=== PATIENT | female | born 1995 | race Two or more races ===

== ENCOUNTER 2021-05-27 22:58 | Emergency (ER) | payer SELFPAY ==
[~2021-05-27] VITALS: Ht 157.5 cm; Wt 51.0 kg
[2021-05-28] MEDS ORDERED: ACETAMINOPHEN 500 MG TABLET PO ONE (01:00)
[2021-05-28] MEDS ORDERED: IV NORMAL SALINE 1000ML BAG 1,000 ML IV ONE (01:00)
[2021-05-28] MEDS ORDERED: METOCLOPRAMIDE HCL 10 MG/2 ML VIAL. IVP ONE (01:00)
--- NOTE | 2021-05-28 01:02 | PHYS DOC ---
Past Medical History Past Medical History: No Pertinent History Past Surgical History: No Surgical History Smoking Status: Never Smoker Alcohol Use: None Drug Use: None General Adult EDM: Chief Complaint: HEADACHE HPI: HPI: 25-year-old female approximately 3 months presents to the emergency department complaining of headache for the last several days with gradual onset, located on the left side of her head that feels sharp radiating towards the back of her head. Not associate with any new trauma. She reports that she has chronic headaches from a head injury when she was 14 years old. She denies any complications or so far and reports that she had an ultrasound perf ormed that was within normal limits. She does have an SPANISH INSTRUCTOR provider that she sees. She admits to nausea and chills the patient denies vision changes, abdominal pain, change in urination, weakness, tremors, increase in lower extremity swelling. Review of Systems: Review of Systems: ROS is otherwise negative except for as mentioned in HPI Heart Score: C/O Chest Pain: No Physical Exam: PE: Constitutional: No acute distress, non-toxic appearance. HENT: Atraumatic, bilateral external ears normal, nose normal. Eyes: PERRLA, EOMI, conjunctiva normal, no discharge. Neck: Normal range of motion, supple, no stridor. Cardiovascular: Heart rate regular rhythm. 2+ radial pulses Lungs & Thorax: No respiratory distress, symmetrical expansion. Bilateral breath sounds clear to auscultation Abdomen: Soft, no tenderness Skin: Warm, dry. Extremities: No tenderness, no cyanosis, ROM intact, no edema. Neurologic: Alert and oriented X 3, no focal deficits noted. Non ataxic gait. GCS 15. No pronator drift, motor strength is 5/5 in upper extremity lower extremity bilaterally. Cranial nerves II through XII are intact. Psychologic: Affect normal, judgment normal, mood normal. Current Patient Data: Labs: Laboratory Tests Test 05/28/21 01:15 05/28/21 02:24 SARS-CoV-2 Antigen (Rapid) Negative (NEGATIVE) Urine Collection Type Unknown Urine Color Yellow Urine Clarity Clear Urine pH 6.5 (<5.0-8.0) Urine Specific [place] <=1.005 (1.000-1.030) Urine Protein Negative mg/dL (NEG-TRACE) Urine Glucose (UA) Negative mg/dL (NEG) Urine Ketones (Stick) 15 mg/dL (NEG) Urine Blood Negative (NEG) Urine Nitrite Negative (NEG) Urine Bilirubin Negative (NEG) Urine Urobilinogen Dipstick 0.2 mg/dL (0.2 mg/dL) Urine Leukocyte Esterase Negative (NEG) Urine RBC 0 /HPF (0-2) Urine WBC 0 /HPF (0-4) Urine Squamous Epithelial Cells Few /LPF Urine Bacteria 0 /HPF (0-FEW) Vital Signs: Vital Signs Date Time Temp Pulse Resp B/P (MAP) Pulse Ox O2 Delivery O2 Flow Rate FiO2 05/28/21 01:05 98.8 113/65 (81) 100 98.8 Course & Med Decision Making: Course & Med Decision Making Patient felt much better after interventions, her urine is unremarkable, her vitals are stable. She will be discharged in stable condition. My Orders - SOLO GEORGES DO Procedure Category Date Status Time Ua, Cult If Indicated LAB 05/28/21 Complete 00:58 Acetaminophen PHA 05/28/21 Complete (Tylenol) 01:00 Metoclopramide Vial PHA 05/28/21 Complete (Reglan Vial) 01:00 Iv Normal Saline PHA 05/28/21 Complete 1000ml Bag (Iv Sodium 01:00 Sars Cov2 ([place]) LAB 05/28/21 In Process 01:00 Sars Antigen Gabriela Rapid LAB 05/28/21 Complete 01:00 Departure Departure Impression: Primary Impression: Headache Disposition: 01 HOME / SELF CARE / HOMELESS Condition: IMPROVED Referrals: NO PCP (PCP) Patient Instructions: General Headache Without Cause Additional Instructions: You were seen in the Emergency Department for headache. Please drink plenty of fluids -- at least 6-8 glasses of water per day. Dehydration can often precipitate headaches. Avoid alcohol and sugary or caffeinated beverages. Return to the Emergency Department, day or night, if you develop recurrent or worsening headache, vision changes, difficulty eating or drinking due to nausea or vomiting, weakness or numbness in the limbs, difficulty walking or fever. SOLO GEORGES DO May 28, 2021 01:02
[2021-05-28 02:28] LABS: BILIRUBIN,URINE NEGATIVE (NEG); CLARITY,URINE CLEAR; COLOR,URINE YELLOW; NITRITE,URINE NEGATIVE (NEG); PH,URINE 6.5 (<5.0-8.0); PROTEIN,URINE NEGATIVE (NEG-TRACE); UROBILINOGEN,URINE 0.2 mg/dL (0.2 mg/dL)
[2021-05-28 02:36] VITALS: BP 105/56
[2021-05-28 02:37] LABS: BACTERIA,URINE 0 /HPF (0-FEW); RBC,URINE 0 /HPF (0-2); WBC,URINE 0 /HPF (0-4)
--- NOTE | 2021-05-30 18:39 | NUR ---
IP: Attempts x 2 to contact pt concerning covid results. No answer and no voicemail set up.
== END 2021-05-28 03:00 | disposition home or self-care (01) ==
LOC: ER 22:58
DX: O26.891 Other specified pregnancy related conditions, first trimester (principal); Z20.822 Contact with and (suspected) exposure to COVID-19; R51.9 Headache, unspecified; G89.29 Other chronic pain; Z3A.12 12 weeks gestation of pregnancy
CPT/HCPCS: 81001; 87426; 96361; 96374; 99285; J2765; J7030; U0003; U0005; 99283-25

== ENCOUNTER 2021-10-03 23:02 | Observation (INO) | payer SELFPAY ==
[~2021-10-03] VITALS: Ht 147.3 cm; Wt 59.7 kg
[2021-10-03] MEDS ORDERED: IV RINGERS,LACTATED 1000ML 1,000 ML IV SCH (23:30)
[2021-10-04 00:06] LABS: BARBITURATES NEG (NEG); BENZODIAZEPINES NEG (NEG); BILIRUBIN,URINE NEGATIVE (NEG); CANNABINOIDS NEG (NEG); CLARITY,URINE CLOUDY; COCAINE NEG (NEG); COLOR,URINE YELLOW; METHADONE NEG (NEG); NITRITE,URINE NEGATIVE (NEG); OPIATES NEG (NEG); PH,URINE 7.5 (<5.0-8.0); PHENCYCLIDINE NEG (NEG); PROTEIN,URINE 30 mg/dL (NEG-TRACE)
[2021-10-04 00:12] LABS: RBC,URINE OCC /HPF (0-2)
[2021-10-04 00:13] LABS: BACTERIA,URINE MANY /HPF (0-FEW)
[2021-10-04 00:16] LABS: AMPHETAMINE/METHAMPHETAMINE NEG (NEG)
== END 2021-10-04 02:30 | disposition home or self-care (01) ==
LOC: EDBD 23:02 → 3 SO LND 23:02
PROVIDERS: ADMIT Obstetrics & Gynecology; ATTEND Obstetrics & Gynecology
DX: O26.893 Other specified pregnancy related conditions, third trimester (principal); R10.9 Unspecified abdominal pain; Z3A.34 34 weeks gestation of pregnancy; Z79.899 Other long term (current) drug therapy
CPT/HCPCS: 59025; 80307; 81001; 87086; 96360; G0378; G0379; J7120

== ENCOUNTER 2021-10-31 18:27 | Observation (INO) | payer SELFPAY ==
[2021-10-31] MEDS ORDERED: IV RINGERS,LACTATED 1000ML 1,000 ML IV SCH (18:45)
[2021-10-31] MEDS ORDERED: IV RINGERS,LACTATED 1000ML 1,000 ML IV PRN (18:45)
[2021-10-31 19:24] LABS: BILIRUBIN,URINE NEGATIVE (NEG); CLARITY,URINE CLOUDY; COLOR,URINE STRAW; NITRITE,URINE NEGATIVE (NEG); PROTEIN,URINE NEGATIVE (NEG-TRACE); UROBILINOGEN,URINE 0.2 mg/dL (0.2 mg/dL)
[2021-10-31 19:26] LABS: BACTERIA,URINE MANY /HPF (0-FEW)
[2021-10-31 19:27] LABS: RBC,URINE 0 /HPF (0-2); WBC,URINE OCC /HPF (0-4)
[2021-10-31] MEDS ORDERED: TERBUTALINE 1 MG/ML VIAL. ONE ×2 (20:25→21:00)
--- NOTE | 2021-10-31 20:50 | PDOC1 ---
DOCTOR OF OSTEOPATHY H&P Date of Admission: Date of Admission: Oct 31, 2021 at 18:27 History of Present Illness: EDC: 11/15/21 LMP: 02/08/21 (per [facility] records), 01/31/21 (per pt) 25y @ 37.6 by L=20 who presented to L&D with stomach pain, vaginal pressure, ctxs. She felt these pains for the last 3 days. She [facility] at [facility]. She has not been referred to for a chart review yet. She has had a few level II u/s with for a borderline EFW. The LMP that they have used to calculate her EDC is different than the LMP that the pt gives today. It is unclear why the difference exists. The pt is sure about her LMP. She states that she was veronica by the Pricing Strategist a last Wednesday that she was 38 wks. Her appt got cancelled this wk due to the weather. She had a C/S with her first . It is unclear why she had the C/S. She tells me that she was found to be oligio at 40wks, but told the nurse prior to our discussion that it was for NRFHT. The cone former that I used seemed to have some limitations. The incision on her skin is a vertical midline. Base on her history it is likely that the incision on her lower transverse, but we cant not be complete sure. She is interested in a TOLAC, but is fine if she needs a C/S. Medications: Meds: Current Medications Medications (Trade) Dose Ordered Sig/Tg Route PRN Reason Start Time Stop Time Status Last Admin Dose Admin Ringer's Solution 1,000 ml @ 125 mls/hr Q8H IV 10/31/21 18:45 10/31/21 20:34 Ringer's Solution 1,000 ml @ 125 mls/hr Q8H PRN IV PER PROTOCOL 10/31/21 18:45 10/31/21 19:40 Allergies: Coded Allergies: No Known Drug Allergies (Unverified , 05/28/21) Physical Exam: PE: GENERAL: No apparent distress. Alert and oriented. HEENT: Head normocephalic, atraumatic. NECK: Supple LUNGS: Clear to auscultation. HEART: RRR, S1, S2 present, pulses intact ABDOMEN: Soft, positive bowel sounds. EXTREMITIES: No cyanosis or edema. NEUROLOGIC: Normal speech, normal tone PSYCHIATRIC: Normal affect, normal mood. SKIN: No ulceration. Labs: Laboratory Tests Test 10/31/21 18:35 Urine Collection Type Unknown Urine Color Straw Urine Clarity Cloudy Urine pH 6.0 (<5.0-8.0) Urine Specific [place] <=1.005 (1.000-1.030) Urine Protein Negative mg/dL (NEG-TRACE) Urine Glucose (UA) Negative mg/dL (NEG) Urine Ketones (Stick) Negative mg/dL (NEG) Urine Blood Negative (NEG) Urine Nitrite Negative (NEG) Urine Bilirubin Negative (NEG) Urine Urobilinogen Dipstick 0.2 mg/dL (0.2 mg/dL) Urine Leukocyte Esterase Negative (NEG) Urine RBC 0 /HPF (0-2) Urine WBC Occ /HPF (0-4) Urine Squamous Epithelial Cells Few /LPF Urine Bacteria Many /HPF (0-FEW) Assessment & Plan: A/P 25y @ 37.6 by L=20 1.) PTC no significant cervical change. Ctxs have space out after a Liter of fluids. Will give one dose of Terb 2.) Prev C/S x 1 desires TOLAC, unk scar 3.) Borderline EFW 11% at 09/29/21 4.) Pt desires to switch to [facility] medical care. Appt given today 11/06/21 at 1:20 pm 5.) Fetus cat I FHT 6.) GBS unk will obtain records from [facility] Oleary MD Oct 31, 2021 20:50
== END 2021-10-31 22:29 | disposition home or self-care (01) ==
LOC: 3 SO LND 18:27
PROVIDERS: ADMIT Obstetrics & Gynecology; ATTEND Obstetrics & Gynecology
DX: O62.9 Abnormality of forces of labor, unspecified (principal); O26.893 Other specified pregnancy related conditions, third trimester; R10.2 Pelvic and perineal pain; N89.8 Other specified noninflammatory disorders of vagina; O34.219 Maternal care for unspecified type scar from previous cesarean delivery; Z3A.37 37 weeks gestation of pregnancy
CPT/HCPCS: 59025; 81001; 87086; 96360; 96361; G0378; G0379; J3105; J7120

== ENCOUNTER 2021-11-10 05:34 | Inpatient (IN) | payer SELFPAY ==
[~2021-11-10] VITALS: Ht 147.3 cm; Wt 63.6 kg
[2021-11-10] MEDS ORDERED: IV RINGERS,LACTATED 1000ML 1,000 ML IV SCH (05:45)
[2021-11-10] MEDS ORDERED: CITRIC ACID/SODIUM CITRATE 30 ML SOLUTION. PO ONE (05:45)
[2021-11-10 05:50] VITALS: BP 121/72
[2021-11-10] MEDS ORDERED: ceFAZolin 2GM PREMIX 2 GM/50 ML BAG IV ONE (06:00)
[2021-11-10 06:31] LABS: BILIRUBIN,URINE NEGATIVE (NEG); CLARITY,URINE CLEAR; COLOR,URINE YELLOW
[2021-11-10 06:32] LABS: NITRITE,URINE NEGATIVE (NEG); PROTEIN,URINE NEGATIVE (NEG-TRACE); UROBILINOGEN,URINE 0.2 mg/dL (0.2 mg/dL)
[2021-11-10 06:39] LABS: RBC,URINE 0 /HPF (0-2); WBC,URINE 0 /HPF (0-4)
[2021-11-10 06:40] LABS: BACTERIA,URINE MODERATE /HPF (0-FEW)
[2021-11-10 06:56] LABS: HEMOGLOBIN 11.1 g/dL (12.0-15.5); RED BLOOD COUNT 4.04 x10^6/uL (3.50-5.40); RED CELL DISTRIBUTION WIDTH 16.4 % (11.5-14.5); WHITE BLOOD COUNT 7.2 x10^3/uL (4.0-11.0)
[2021-11-10] MEDS: IV RINGERS,LACTATED 1000ML 1,000 ML IV SCH ×3 (07:19→18:37)
[2021-11-10] MEDS ORDERED: MORPHINE PF 10 MG/10 ML AMPUL. ONE (07:34)
[2021-11-10] MEDS ORDERED: fentaNYL PF VIAL 100 MCG/2 ML VIAL ONE (07:35)
--- NOTE | 2021-11-10 08:14 | PDOC1 ---
COACH MECHANIC H&P Date of Admission: Date of Admission: Nov 10, 2021 at 05:34 History of Present Illness: EDC: 11/15/21 LMP: 02/08/21 (per [facility] records), 01/31/21 (per pt) 25y @ 39.2 by L=20 who presented to L&D for scheduled C/S. The pt began her care with [facility] but desired to deliver at [place]. She has been to for growth u/s but never attended a chart review. The used a different LMP than she gave on L and D. We are using the EDC established by . She had a C/S with her first . It is unclear why she had the C/S. On L and D she stated that the C/s was for oligio (baby swallowing fluid) at 40wks. The pt was asked about NRFHT, but does not think it was for that reason. She states that often the providers don t communicate why they are doing things in [place]. The pt underwent the C/S under spinal anesthesia. Explained that based on most of what she has told me it is likely that her C/S was lower transverse. Since I could not be 100% it would be consider an unknown scar and she would be a little more risk. The pt originally was considering a TOLAC, but today states that she would prefer a repeat C/S. The pt has been having some ctx s. They are not as intense as he visit earlier in the wk. One of the reason why the pt has decided on a repeat C/S, is that she tired of coming to L and D and having her ctx s stopped. The pt thinks that a GBS was obtained at [facility]. PMH: Denies PSH: C/S x 1 Meds: PNV All: NKDA OBHx: TC/S SH: no tob, no EtOH FH: Cardiac disease. Medications: Meds: Current Medications Medications (Trade) Dose Ordered Sig/Tg Route PRN Reason Start Time Stop Time Status Last Admin Dose Admin Ringer's Solution 1,000 ml @ 1,000 mls/hr Q1H IV 11/10/21 05:45 11/10/21 06:44 DC 11/10/21 06:13 Ringer's Solution 1,000 ml @ 125 mls/hr Q8H IV 11/10/21 05:45 11/10/21 07:19 Citric Acid/ Sodium Citrate (Bicitra) 30 ml 1X ONCE PO 11/10/21 05:45 11/10/21 05:49 DC 11/10/21 06:49 Allergies: Coded Allergies: No Known Drug Allergies (Unverified , 05/28/21) Physical Exam: Vital Signs: Vital Signs Date Time Temp Pulse Resp B/P (MAP) Pulse Ox O2 Delivery O2 Flow Rate FiO2 11/10/21 05:50 98.1 85 18 121/72 (88) Room Air 98.1 PE: GENERAL: No apparent distress. Alert and oriented. HEENT: Head normocephalic, atraumatic. NECK: Supple LUNGS: Clear to auscultation. HEART: RRR, S1, S2 present, pulses intact ABDOMEN: Soft, positive bowel sounds. EXTREMITIES: No cyanosis or edema. NEUROLOGIC: Normal speech, normal tone PSYCHIATRIC: Normal affect, normal mood. SKIN: No ulceration. FHT: 150s +acels/no decels/mLTV [place]: 8-10 min Labs: Laboratory Tests Test 11/10/21 05:55 11/10/21 06:11 Urine Collection Type Unknown Urine Color Yellow Urine Clarity Clear Urine pH 6.0 (<5.0-8.0) Urine Specific [place] 1.025 (1.000-1.030) Urine Protein Negative mg/dL (NEG-TRACE) Urine Glucose (UA) Negative mg/dL (NEG) Urine Ketones (Stick) Negative mg/dL (NEG) Urine Blood Negative (NEG) Urine Nitrite Negative (NEG) Urine Bilirubin Negative (NEG) Urine Urobilinogen Dipstick 0.2 mg/dL (0.2 mg/dL) Urine Leukocyte Esterase Negative (NEG) Urine RBC 0 /HPF (0-2) Urine WBC 0 /HPF (0-4) Urine Squamous Epithelial Cells Few /LPF Urine Bacteria Moderate /HPF (0-FEW) Urine Mucus Slight /LPF White Blood Count 7.2 x10^3/uL (4.0-11.0) Red Blood Count 4.04 x10^6/uL (3.50-5.40) Hemoglobin 11.1 g/dL (12.0-15.5) L Hematocrit 34.0 % (36.0-47.0) L Mean Corpuscular Volume 84 fL (79-100) Mean Corpuscular Hemoglobin 28 pg (25-35) Mean Corpuscular Hemoglobin Concent 33 g/dL (31-37) Red Cell Distribution Width 16.4 % (11.5-14.5) H Platelet Count 215 x10^3/uL (140-400) Laboratory Tests 11/10/21 06:11 Laboratory Tests 11/10/21 06:11 Assessment & Plan: A/P 25y @ 39.2 by L=20 1.) [facility] records requested 2.) Prev C/S x 1 - desires repeat (operations scheduler at [facility] has gone home for the day) 3.) Borderline EFW 11% at 09/29/21 4.) Fetus cat I FHT 5.) GBS unk - will obtain records from [facility] Oleary MD Nov 10, 2021 08:14
[2021-11-10] MEDS ORDERED: ePHEDrine PF IN SALINE 50 MG/10 ML SYRINGE. IV ONE (10:54)
[2021-11-10] MEDS ORDERED: OXYTOCIN 10 UNIT/ML VIAL. ONE (10:54)
[2021-11-10] MEDS ORDERED: FAMOTIDINE 20 MG/2 ML VIAL ONE (10:54)
[2021-11-10] MEDS ORDERED: ONDANSETRON PF 4 MG/2 ML VIAL. ONE (10:54)
[2021-11-10] MEDS ORDERED: METOCLOPRAMIDE HCL 10 MG/2 ML VIAL. ONE (10:54)
[2021-11-10] MEDS ORDERED: ACETAMINOPHEN 325 MG TABLET. PO PRN (11:00)
[2021-11-10] MEDS ORDERED: BENZOCAINE 20% TOPICAL AEROSOL SPRAY 57GM CAN. TP PRN (11:00)
[2021-11-10] MEDS ORDERED: OXYTOCIN 30 UNIT/500 ML PREMIX 500 ML IV PRN (11:00)
[2021-11-10] MEDS ORDERED: 0.9 % SODIUM CHLORIDE 10 ML DISP.SYRIN. IV PRN (11:00)
[2021-11-10] MEDS ORDERED: MMR per PROTOCOL. MC PRN (11:00)
[2021-11-10] MEDS ORDERED: TDaP (BOOSTRIX) per PROTOCOL. MC PRN (11:00)
[2021-11-10] MEDS ORDERED: oxyCODONE/APAP 5/325 1 TAB TABLET PO PRN (11:00)
[2021-11-10] MEDS: diphenhydrAMINE ORAL ELIXIR 12.5 MG/5 ML ML PO PRN ×2 (11:09→23:10)
[2021-11-10] MEDS ORDERED: ONDANSETRON PF 4 MG/2 ML VIAL. IVP PRN (12:45)
--- NOTE | 2021-11-10 12:54 | PDOC4 ---
OPERATIVE NOTE: PreOp Dx: 1.) IUP @ 39.2 by L=20, 2.) BEULAH from [facility], 3.) Prev C/S x 1, 4.) Borderline EFW 11% at 09/29/21, 5.) GBS unk (obtained at [facility]) PostOp Dx: same, 9.) Thick mec Procedure: RLTCS Surgeon: Poppy Bernstein Anesthesia: Spinal EBL: 800 cc Fluids: 1000 cc UOP: 250 cc Complications: None Findings: Viable male infant delivered at 0848. Wt 6 lb 15.5 oz. APGARS 8/9. Nml tubes and ovaries. Path: Cord blood NHUNG BERNSTEIN MD Nov 10, 2021 12:54
[2021-11-10 13:25] VITALS: BP 98/52
--- NOTE | 2021-11-10 13:25 | NUR ---
Patient transfered from [facility] to room 341 after recovery via bed. Patient accompanied by SO and baby. Patient continued to C/o nausea at that time. Patient requesting fluids, Rn explained tp patient to remain NPO till nausea subsides. Patient voiced understanding. IV LR continues to infuse @ 125ml Hr. Patient comfortable and denies further needs at that time.
--- NOTE | 2021-11-10 13:30 | OP ---
DATE OF SURGERY: 11/10/2021 PREOPERATIVE DIAGNOSES: 1. Intrauterine at 39 weeks and 2 days by LMP equal to 20-week ultrasound. 2. Transfer of care from [facility]. 3. Previous section x 1, desires repeat. 4. Borderline estimated weight of 11% on 09/29. 5. GBS unknown, was obtained at [facility]. POSTOPERATIVE DIAGNOSES: 1. Intrauterine at 39 weeks and 2 days by LMP equal to 20-week ultrasound. 2. Transfer of care from [facility]. 3. Previous section x 1, desires repeat. 4. Borderline estimated weight of 11% on 09/29. 5. GBS unknown, was obtained at [facility]. PROCEDURE: Repeat low transverse . SURGEON: Kalyan Bryant MD ANESTHESIA: Spinal. ESTIMATED BLOOD LOSS: 800 mL. FLUIDS: 1000 mL. URINE OUTPUT: 250 mL. COMPLICATIONS: None. FINDINGS: Viable male delivered at 0848, weighing 6 pounds 15.5 ounces with Apgars of 8 and 9. Normal tubes and ovaries noted. PATHOLOGY: Cord blood. DESCRIPTION OF PROCEDURE: The patient was taken to the operating room, where spinal anesthesia was placed without difficulty. The patient was prepped and draped in normal sterile fashion with a left lateral tilt. Her previous vertical midline incision had formed a keloid. This was cut out in an elliptical fashion. Once the scar had been cut out, incision was carried down to the underlying layer of fascia, which was opened vertically along the midline. Once the peritoneum had been identified, hemostat was used to tent up and grasped and entered sharply with Metzenbaum scissors. Digital examination of the peritoneum revealed no appreciable adhesions. At that point, the peritoneal incision was extended superiorly and inferiorly with good visualization of the bladder with traction and countertraction. At that point, Garfield ring was then placed to better visualize the lower uterine segment. A bladder flap was then created with Metzenbaum scissors. Once this had been accomplished, the lower uterine segment was incised in transverse fashion with the scalpel. The 's head was then flexed and brought to the hysterotomy. The rest of was delivered atraumatically. The nose and mouth were bulb suctioned. The cord was double clamped and cut. Infant was handed over to the waiting workers compensation consultant. Placenta was then removed manually. Uterus was then cleared of all clots and debris. At that point, the uterine incision was repaired with #1 chromic in a running locked fashion. A second layer of the same suture was used to imbricate. At that point, a 2-0 Vicryl was used to close the peritoneum. The fascia and muscle were then closed with a modified Torresead-Small method with 0 Vicryl essentially where the first pass included the fascia, muscle and peritoneum with the next pass only including the fascia. This was done with every other pass until the fascia was closed. At that point, the subcutaneous space was reapproximated with 2-0 Vicryl with 4 interrupted stitches. The skin was then closed with 3-0 Monocryl in a subcuticular manner. The patient tolerated the procedure well. Sponges, laps and needles were correct x3. Two grams of Ancef were given prior to the procedure. The patient was then taken to recovery room in stable condition. EMILIANO DR: Marcie TID: [phone]
[2021-11-10 14:00] VITALS: BP 113/54
[2021-11-10 15:00] VITALS: BP 107/62
[2021-11-10] MEDS: FERROUS SULFATE 325 MG TABLET. PO SCH (17:00)
[2021-11-10 19:15] VITALS: BP 110/64
[2021-11-10] MEDS: KETOROLAC 30 MG/ML VIAL. IVP PRN (19:18)
[2021-11-10 23:12] VITALS: BP 111/67
[2021-11-11 01:09] VITALS: BP 103/49
[2021-11-11] MEDS: KETOROLAC 30 MG/ML VIAL. IVP PRN (01:24)
[2021-11-11] MEDS: IV RINGERS,LACTATED 1000ML 1,000 ML IV SCH (02:31)
[2021-11-11 06:20] VITALS: BP 97/50
[2021-11-11 06:32] LABS: HEMATOCRIT 25.7 % (36.0-47.0); HEMOGLOBIN 8.7 g/dL (12.0-15.5); RED BLOOD COUNT 3.09 x10^6/uL (3.50-5.40); RED CELL DISTRIBUTION WIDTH 16.2 % (11.5-14.5); WHITE BLOOD COUNT 8.1 x10^3/uL (4.0-11.0)
[2021-11-11] MEDS: MULTIVITAMIN with MINERAL TABLET. PO SCH (08:32)
[2021-11-11] MEDS: FERROUS SULFATE 325 MG TABLET. PO SCH ×2 (08:32→17:40)
[2021-11-11] MEDS: IBUPROFEN 400 MG TABLET. PO PRN ×2 (08:33→19:32)
[2021-11-11] MEDS: PRENATAL MULTIVITAMIN TABLET. PO SCH (09:00)
[2021-11-11 10:20] VITALS: BP 102/56
--- NOTE | 2021-11-11 12:19 | PDOC ---
SAUSAGE COOKER PROGRESS NOTE Date of Service: DATE: 11/11/21 TIME: 12:16 Subjective: Doing well. Tolerates regular diet. Up to restroom. Pain well managed with PO meds. Otherwise denies complaints. Objective: Objective: FF @ U, scant lochia. 2cm x 4cm area of dried bloody drainage to abdominal dressing, unchanged in amount since last noc. No active bleeding. Plan to remove bandage in shower today. Tr edema to bilateral LE. Vital Signs: Vital Signs Date Time Temp Pulse Resp B/P (MAP) Pulse Ox O2 Delivery O2 Flow Rate FiO2 11/10/21 13:25 98.6 68 18 98/52 (67) 96 Room Air 98.6 Vital Signs Date Time Temp Pulse Resp B/P (MAP) Pulse Ox O2 Delivery O2 Flow Rate FiO2 11/11/21 10:20 100.7 87 18 102/56 (71) 97 100.7 11/11/21 09:00 Room Air Labs: Laboratory Tests Test 11/11/21 06:00 White Blood Count 8.1 x10^3/uL (4.0-11.0) Red Blood Count 3.09 x10^6/uL (3.50-5.40) L Hemoglobin 8.7 g/dL (12.0-15.5) L Hematocrit 25.7 % (36.0-47.0) L Mean Corpuscular Volume 83 fL (79-100) Mean Corpuscular Hemoglobin 28 pg (25-35) Mean Corpuscular Hemoglobin Concent 34 g/dL (31-37) Red Cell Distribution Width 16.2 % (11.5-14.5) H Platelet Count 170 x10^3/uL (140-400) Laboratory Tests 11/11/21 06:00 Laboratory Tests 11/11/21 06:00 Physical Exam: GENERAL: No apparent distress. Alert and oriented. HEENT: Head normocephalic, atraumatic. NECK: Supple LUNGS: Clear to auscultation. HEART: RRR, S1, S2 present, pulses intact ABDOMEN: Soft, positive bowel sounds. EXTREMITIES: No cyanosis or edema. NEUROLOGIC: Normal speech, normal tone PSYCHIATRIC: Normal affect, normal mood. SKIN: No ulceration. Assessment & Plan: POD # 1, increase activity as tolerated. Routine PP course. BIRD ROSARIO CNM Nov 11, 2021 12:19
[2021-11-11] MEDS: DOCUSATE SODIUM 100 MG CAPSULE. PO PRN (12:28)
[2021-11-11 14:26] VITALS: BP 107/65
[2021-11-11] MEDS: oxyCODONE/APAP 5/325 1 TAB TABLET PO PRN (17:47)
[2021-11-11 18:30] VITALS: BP_SYST 119
[2021-11-11 21:20] VITALS: BP 108/43
[2021-11-12] MEDS: oxyCODONE/APAP 5/325 1 TAB TABLET PO PRN ×3 (03:58→13:15)
[2021-11-12] MEDS: IBUPROFEN 400 MG TABLET. PO PRN ×2 (03:59→13:15)
[2021-11-12 04:04] VITALS: BP 104/68
[2021-11-12 08:33] VITALS: BP 110/65
[2021-11-12] MEDS: DOCUSATE SODIUM 100 MG CAPSULE. PO PRN (08:34)
[2021-11-12] MEDS: PRENATAL MULTIVITAMIN TABLET. PO SCH (08:34)
[2021-11-12] MEDS: FERROUS SULFATE 325 MG TABLET. PO SCH (08:34)
[2021-11-12 08:45] VITALS: BP 110/65
[2021-11-12] MEDS ORDERED: DOCU-109 PO (08:59)
[2021-11-12] MEDS ORDERED: FERR325T14 PO (08:59)
[2021-11-12] MEDS ORDERED: IBUP-1060 PO (08:59)
[2021-11-12] MEDS ORDERED: OXYC1TAB15 PO (09:00)
[2021-11-12] MEDS: MULTIVITAMIN with MINERAL TABLET. PO SCH (09:00)
--- NOTE | 2021-11-12 10:12 | PDOC ---
SLP TEACHER PROGRESS NOTE Date of Service: DATE: 11/12/21 TIME: 10:12 Subjective: Pt with good pain control. Marivel PO. Voiding. Minimal lochia. Objective: Vital Signs: Vital Signs Date Time Temp Pulse Resp B/P (MAP) Pulse Ox O2 Delivery O2 Flow Rate FiO2 11/11/21 09:00 Room Air 11/11/21 10:20 100.7 87 18 102/56 (71) 97 100.7 Vital Signs Date Time Temp Pulse Resp B/P (MAP) Pulse Ox O2 Delivery O2 Flow Rate FiO2 11/12/21 08:45 Room Air 11/12/21 08:45 97.7 69 18 110/65 (80) 98 97.7 Physical Exam: GENERAL: No apparent distress. Alert and oriented. HEENT: Head normocephalic, atraumatic. NECK: Supple LUNGS: Clear to auscultation. HEART: RRR, S1, S2 present, pulses intact ABDOMEN: Soft, positive bowel sounds. EXTREMITIES: No cyanosis or edema. NEUROLOGIC: Normal speech, normal tone PSYCHIATRIC: Normal affect, normal mood. SKIN: No ulceration. FFNT below umb No C/C/E Inc: C/D/I Assessment & Plan: A/P 25y POD #2 s/p RLTCS 1.) PO doing well 2.) [facility] records reviewed 3.) Anemia Hgb 11.1 -> 8.7 4.) D/c today NHUNG BERNSTEIN MD Nov 12, 2021 10:12
--- NOTE | 2021-11-12 11:56 | DS ---
DATE OF DISCHARGE: 11/12/2021 ADMISSION DIAGNOSES: 1. Intrauterine at 39 weeks and 2 days by LMP equal to 20-week ultrasound. 2. Previous section x 1, desires repeat. 3. Transfer of care from [facility]. 4. Borderline estimated weight of 11% on 09/29/2021. 5. GBS unknown. DISCHARGE DIAGNOSES: 1. Intrauterine at 39 weeks and 2 days by LMP equal to 20-week ultrasound. 2. Previous section x 1, desires repeat. 3. Transfer of care from [facility]. 4. Borderline estimated weight of 11% on 09/29/2021. 5. GBS negative. PROCEDURE: Repeat low transverse . BRIEF HOSPITAL COURSE: The patient is a 25-year-old 2, para 1-0-0-1, who presented to Labor and Delivery at 39 weeks and 2 days by LMP equal to 20-week ultrasound for scheduled . The patient had begun her care at [facility], but delivered at [place]. The patient's transferred care a week prior to her . The patient had been seen [facility] for growth scans. On her most recent one on 09/29/2021, the patient was found to have a borderline estimated weight of 11%. The patient initially was planning on having a trial of labor after section, but ultimately decided to have a repeat . The patient underwent said procedure on 11/10/2021. See operative note for full detail. By postoperative day #2, the patient was meeting all discharge criteria and subsequently discharged home. Of note, the patient's hemoglobin on admission was 11.1 and after delivery, was found to be 8.7. DISCHARGE INSTRUCTIONS: The patient was told not to lift anything greater than 20 pounds, have pelvic rest for 6 weeks, not to drive on narcotics. CALL IF: The patient was to call if she had fevers, chills, nausea, vomiting, abdominal pain or any additional questions or concerns. FOLLOWUP APPOINTMENT: The patient was to follow up on 11/20/2021 at 1:20 p.m. for an incision check. DISCHARGE MEDICATIONS: The patient was given a prescription for Percocet 5, 15 pills; Motrin 800 mg, 30 pills; ferrous sulfate 325 mg, 30 pills and Colace 100 mg, 30 pills. SAIRA/POP DR: Marcie TID: [phone]
[2021-11-12 12:05] VITALS: BP 95/56
[2021-11-12 12:45] VITALS: BP 111/79
--- NOTE | 2021-11-12 13:25 | NUR ---
Pt. d/c to home per order. Pt. ambulated per request to vehicle. No questions over d/c instructions at this time.
== END 2021-11-12 13:25 | disposition home or self-care (01) | DRG 788 ==
LOC: 3 SO LND 05:34
PROVIDERS: ADMIT Obstetrics & Gynecology; ATTEND Obstetrics & Gynecology
PROC: 10D00Z1 Extraction of Products of Conception, Low, Open Approach (ICD-10-PCS; principal; 2021-11-10)
DX: O34.211 Maternal care for low transverse scar from previous cesarean delivery (principal); Z37.0 Single live birth; Z3A.39 39 weeks gestation of pregnancy; O99.02 Anemia complicating childbirth; D64.9 Anemia, unspecified
CPT/HCPCS: 36415; 81001; 85027; 86592; 86703; 86762; 86850; 86900; 86901; 87086; 87340; C1755; J0690; J1885; J2274; J2405; J2590; J2765; J3010; J3490; J7120; G0378